=== PATIENT | female | born 1975 | race African-American/Black ===

== ENCOUNTER 2023-05-11 16:42 | Emergency (ER) | payer OTHER ==
[~2023-05-11] VITALS: Ht 165.1 cm; Wt 81.8 kg
[2023-05-11 16:46] VITALS: TEMP 98.7
[2023-05-11] MEDS ORDERED: TraMADol HCL 50 MG TABLET PO ONE (18:30)
[2023-05-11] MEDS ORDERED: KETOROLAC TROMETHAMINE 30 MG/ML VIAL IM ONE (18:30)
[2023-05-11 20:51] VITALS: BP 117/70; PULSE 75; RESP 16
== END 2023-05-11 21:21 | disposition left against medical advice (07) ==
LOC: EMS 16:42
DX: S49.91XA Unspecified injury of right shoulder and upper arm, initial encounter (principal); M25.551 Pain in right hip; Z98.890 Other specified postprocedural states; X58.XXXA Exposure to other specified factors, initial encounter; Y93.89 Activity, other specified; Y92.89 Other specified places as the place of occurrence of the external cause; Y99.8 Other external cause status
CPT/HCPCS: 99285; 84703; 36415; 72040; 73030; 73502; 93005; 96372; J1885